=== PATIENT | male | born 1935 | race Caucasian/White ===

== ENCOUNTER 2017-10-16 07:40 | Day surgery (SDC) | payer OTHER ==
[~2017-10-16 07:40] MED LIST: ARICEPT10 MG PO; ASA81 MG PO; CEREFOLIN CAPL1 EACH PO; CHLORTHALIDONE25 MG PO; FOSAMAX70 MG PO; INDUR; INTEGRA CAPSUL1 EACH; INTESTINEX680 MG PO; ISORDIL10 MG PO; METHOTREXATE MC; PRAMIPEXOLE DI0.5 MG PO; PREDNISOLONE5 G1 MC; SIMVASTATIN10 MG PO; TAMS0.4C PO; VIIBRYD10 MG PO; ZOCOR5 MG PO; [UNRECOGNIZED DRUG - OTHER]
== END 2017-10-16 11:40 | disposition home or self-care (01) ==
LOC: CIR.AMB 07:40
DX: M54.06 Panniculitis affecting regions of neck and back, lumbar region (principal); M54.07 Panniculitis affecting regions of neck and back, lumbosacral region

== ENCOUNTER 2019-01-03 10:45 | Inpatient (IN) | payer OTHER ==
[~2019-01-03] VITALS: Ht 172.7 cm; Wt 102.1 kg
[2019-01-03] MEDS ORDERED: TAMS0.4C PO (12:30)
[2019-01-03] MEDS ORDERED: ASA81 MG PO (12:30)
[2019-01-03] MEDS ORDERED: DONEPEZIL HCL10 MG PO (12:30)
[2019-01-03] MEDS ORDERED: ISOSORBIDE DINI30 MG PO (12:30)
[2019-01-03] MEDS ORDERED: SIMVASTATIN10 MG PO (12:30)
[2019-01-03] MEDS ORDERED: PREDNISONE2.5 MG PO (12:31)
[2019-01-03] MEDS ORDERED: FENOFIBRATE40 MG PO (12:31)
[2019-01-03] MEDS ORDERED: STALEVO 75 TAB1 EACH PO (12:32)
== END 2019-01-17 13:54 | DRG 464 ==
LOC: SURG 01-06 05:30 → O/R 01-06 05:30 → SURH 01-06 09:00 → SURG 01-06 15:15
PROVIDERS: ADMIT Orthopaedic Surgery
PROC: 0JBP0ZZ Excision of Left Lower Leg Subcutaneous Tissue and Fascia, Open Approach (ICD-10-PCS; 2019-01-06)
PROC: 0SPD0JZ Removal of Synthetic Substitute from Left Knee Joint, Open Approach (ICD-10-PCS; principal; 2019-01-06 09:00)
PROC: 02HV33Z Insertion of Infusion Device into Superior Vena Cava, Percutaneous Approach (ICD-10-PCS; 2019-01-07)
PROC: 30233N1 Transfusion of Nonautologous Red Blood Cells into Peripheral Vein, Percutaneous Approach (ICD-10-PCS; 2019-01-08)
DX: T84.54XA Infection and inflammatory reaction due to internal left knee prosthesis, initial encounter (principal); D62 Acute posthemorrhagic anemia; I25.810 Atherosclerosis of coronary artery bypass graft(s) without angina pectoris; G47.39 Other sleep apnea; M17.12 Unilateral primary osteoarthritis, left knee; G30.0 Alzheimer's disease with early onset; F02.80 Dementia in other diseases classified elsewhere, unspecified severity, without behavioral disturbance, psychotic disturbance, mood disturbance, and anxiety; G20 Parkinson's disease; I10 Essential (primary) hypertension; N40.0 Benign prostatic hyperplasia without lower urinary tract symptoms